=== PATIENT | male | born 1980 | race Two or more races ===

== ENCOUNTER 2016-12-03 08:21 | Emergency (ER) | payer SELFPAY ==
[~2016-12-03] VITALS: Ht 157.5 cm; Wt 63.5 kg
[2016-12-03] MEDS ORDERED: ALBUTEROL FS 2.5 MG/3 ML VIAL.NEB ONE (08:29)
[2016-12-03] MEDS ORDERED: IPRATROPIUM NEB FS 0.5 MG/2.5 ML AMPUL.NEB ONE (08:29)
[2016-12-03] MEDS ORDERED: ALBUTEROL FS 2.5 MG/0.5 ML VIAL.NEB NEB ONE (08:30)
[2016-12-03] MEDS ORDERED: IPRATROPIUM NEB FS 0.5 MG/2.5 ML AMPUL.NEB NEB ONE (08:30)
[2016-12-03] MEDS ORDERED: methylPREDNISolone SOD SUCC 125 MG/2ML VIAL IV ONE (08:30)
--- NOTE | 2016-12-03 08:30 | NUR ---
PT BIBA FOR SOB. BREATHING TX GIVEN ON FIELD. NOTED LETHARGIC. PT [id number]. SEEN BY MD FOR EVAL. 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 VSS. REMAINS ON MASK AT 5LPM SATING AT 100%. SAFETY AND COMFORT MEASURES PROVIDED. WILL MONITOR.
--- NOTE | 2016-12-03 08:33 | NUR ---
RT AT BS FOR BREATHING TX.
[2016-12-03] MEDS ORDERED: methylPREDNISolone SOD SUCC 125 MG/2ML VIAL ONE (08:48)
--- NOTE | 2016-12-03 10:23 | NUR ---
NATALEE AT BS.
[2016-12-03 10:52] VITALS: BP 122/70
--- NOTE | 2016-12-03 10:53 | NUR ---
Patient discharged to home in stable condition. Written and verbal after care instructions given. Patient verbalizes understanding of instruction.IV removed. Catheter intact and site benign. Pressure and 4x4 applied to site. No bleeding noted.
== END 2016-12-03 10:53 | disposition home or self-care (01) ==
LOC: ER 08:23
DX: J45.901 Unspecified asthma with (acute) exacerbation (principal)
CPT/HCPCS: 71010-TC; A4606; J2930; Z7610